=== PATIENT | male | born 1985 | race American Indian/Alaskan Native ===

== ENCOUNTER 2016-08-17 13:14 | Emergency (ER) | payer OTHER ==
[2016-08-17 13:14] VITALS: BMI 45.7
[2016-08-17 13:21] VITALS: RESP 18; TEMP 97.9
[2016-08-17] MEDS ORDERED: Dexamethasone 4 mg/1 ml ONE (13:55)
[2016-08-17] MEDS ORDERED: Lidocaine 5% Patch TD ONE (13:55)
[2016-08-17] MEDS: Dexamethasone 4 mg/1 ml IM STA (14:00)
[2016-08-17] MEDS: Lidocaine 5% Patch TD STA (14:00)
--- NOTE | 2016-08-17 14:20 | C.PDOC ---
History Of Present Illness 30 y/o male presents to the ED with complains of chronic back pain. Pt has been taking muscle relaxants without relief. Pt states pain is right sided and nonradiating the past 2 months. Denies weakness, numbness, urinary or bowel incontinence or any other complaints. Denies trauma. Time Seen by Provider: 08/17/16 13:33 Chief Complaint (Nursing): Back Pain History Per: Patient History/Exam Limitations: no limitations Onset/Duration Of Symptoms: Days, Persistent Current Symptoms Are (Timing): Worse Quality Of Discomfort: "Pain" Severity: Moderate Previous Symptoms: Back Pain, Chronic Pain Associated Symptoms: None Exacerbating Factor(s): Movement Recent travel outside of the [place]: No Past Medical History Reviewed: Historical Data, Nursing Documentation, Vital Signs Vital Signs: Last Vital Signs Temp 97.9 F 08/17/16 13:19 Pulse 72 08/17/16 15:07 Resp 18 08/17/16 15:07 BP 124/71 08/17/16 15:07 Pulse Ox 98 08/17/16 15:07 - Medical History PMH: Arthritis, Back Problems (bulging disc l4,l5), HTN Family History: States: Unknown Family Hx - Social History Hx Tobacco Use: Yes Hx Alcohol Use: No Hx Substance Use: No - Immunization History Hx Tetanus Toxoid Vaccination: Yes Hx Influenza Vaccination: No Hx Pneumococcal Vaccination: No Review Of Systems Except As Marked, All Systems Reviewed And Found Negative. Constitutional: Negative for: Fever Genitourinary: Negative for: Incontinence Musculoskeletal: Positive for: Back Pain Neurological: Negative for: Weakness, Numbness Physical Exam - Physical Exam Appears: Non-toxic, No Acute Distress Skin: Warm, Dry, No Rash Head: Atraumatic, Normacephalic Oral Mucosa: Moist Neck: Normal, Normal ROM, No Midline Cervical Tenderness, Supple Chest: Symmetrical Cardiovascular: Rhythm Regular, No Friction Rub, No Murmur Respiratory: Normal Breath Sounds, No Rales, No Rhonchi, No Wheezing Back: No Vertebral Tenderness, Paraspinal Tenderness (right lumbar) Extremity: Normal ROM Extremity: Bilateral: Atraumatic Neurological/Psych: Oriented x3, Normal Speech, Normal Motor, Normal Sensation Gait: Steady ED Course And Treatment O2 Sat by Pulse Oximetry: 99 (room air) Pulse Ox Interpretation: Normal Progress Note: Plan: tylenol, decadron, lidoderm patch Medical Decision Making Medical Decision Making: On re-exam, the patient reports improvement of symptoms. Lungs are CTA, heart is RRR, abdomen is soft, non-tender and patient is tolerating PO well. Ambulatory in the ED with steady. Follow up with the medical doctor within 1-2 days. Return if worsened. Disposition - Disposition Referrals: [facility] at [facility] [Outside] Baljeet Burger MD [Non-Staff] - Henry Ca MD [Medical Doctor] - Disposition: HOME/ ROUTINE Disposition Time: 14:55 Condition: GOOD Additional Instructions: Follow up with the medical doctor within 1-2 days. Return if worsened. Prescriptions: Acetaminophen [Tylenol] 325 mg PO Q6 PRN #30 tab PRN Reason: Pain, Mild (1-3) Lidocaine 5% [Lidoderm] 1 each TP DAILY #7 patch traMADol [Ultram] 50 mg PO Q6 PRN #15 tab PRN Reason: Pain Instructions: Acute Low Back Pain (DC) Forms: Work Excuse - Clinical Impression Clinical Impression: Lumbar sprain, Lower back pain, Bulging of intervertebral disc between L4 and L5 - PA / HARDWARE TEST ENGINEER / Resident Statement MD/DO has reviewed & agrees with the documentation as recorded. - Scribe Statement The provider has reviewed the documentation as recorded by the Marcos Ingram All medical record entries made by the Marcos were at my direction and personally dictated by me. I have reviewed the chart and agree that the record accurately reflects my personal performance of the history, physical exam, medical decision making, and the department course for this patient. I have also personally directed, reviewed, and agree with the discharge instructions and disposition.
[2016-08-17 15:08] VITALS: BP 124/71; PULSE 72
[2016-08-17 23:49] VITALS: O2SAT 99
== END 2016-08-17 15:09 | disposition home or self-care (01) ==
LOC: C.ER 13:14
DX: M51.26 Other intervertebral disc displacement, lumbar region (principal)
CPT/HCPCS: 96372; 99283; J1100

== ENCOUNTER 2016-09-20 15:21 | Emergency (ER) | payer OTHER ==
[2016-09-20 15:22] VITALS: BMI 45.7
[2016-09-20 15:30] VITALS: BP 128/85; PULSE 72; RESP 18; TEMP 98.3; O2SAT 100
[2016-09-20] MEDS ORDERED: Tmp-Smz 800 mg-160 mg DS Tab PO STA (15:44)
[2016-09-20] MEDS ORDERED: Tmp-Smz 800 mg-160 mg DS Tab ONE (16:00)
--- NOTE | 2016-09-20 16:10 | C.PDOC ---
History Of Present Illness 31 yr old male presents to the ER with complaints of painful lump to the left axilla for the past 3 days. Patient reports of similar symptoms several years ago where he had an abscess which was drained on its own. Patient denies fever, chest pain, SOB, nausea, vomiting, back pain, arm pain, weakness or numbness. Time Seen by Provider: 09/20/16 15:37 Chief Complaint (Nursing): Abnormal Skin Integrity History Per: Patient History/Exam Limitations: no limitations Onset/Duration Of Symptoms: Days (3-4) Current Symptoms Are (Timing): Still Present Quality Of Symptoms: Painful Pain Scale Rating Of: 4 Past Medical History Reviewed: Historical Data, Nursing Documentation, Vital Signs Vital Signs: Last Vital Signs Temp 98.3 F 09/20/16 15:28 Pulse 72 09/20/16 15:28 Resp 18 09/20/16 15:28 BP 128/85 09/20/16 15:28 Pulse Ox 100 09/20/16 16:59 - Medical History PMH: Arthritis, Back Problems (bulging disc l4,l5), HTN Family History: States: No Known Family Hx - Social History Hx Tobacco Use: Yes Hx Alcohol Use: No Hx Substance Use: No - Immunization History Hx Tetanus Toxoid Vaccination: Yes Hx Influenza Vaccination: No Hx Pneumococcal Vaccination: No Review Of Systems Except As Marked, All Systems Reviewed And Found Negative. Constitutional: Negative for: Fever Cardiovascular: Negative for: Chest Pain Respiratory: Negative for: Shortness of Breath Gastrointestinal: Negative for: Nausea, Vomiting Musculoskeletal: Negative for: Arm Pain, Back Pain Skin: Positive for: Other ((+) Painful lump to the left axilla ) Neurological: Negative for: Weakness, Numbness Physical Exam - Physical Exam Appears: Non-toxic, No Acute Distress Skin: Warm, Dry, Other ((+) 1.5cm tender, swollen, and indurated mass to the left axilla ) Head: Atraumatic, Normacephalic Eye(s): bilateral: Normal Inspection Oral Mucosa: Moist Chest: Symmetrical, No Tenderness Cardiovascular: Rhythm Regular, No Friction Rub, No Murmur Respiratory: Normal Breath Sounds, No Rales, No Rhonchi, No Stridor, No Wheezing Extremity: Normal ROM, No Swelling Neurological/Psych: Oriented x3, Normal Speech, Normal Motor Gait: Steady ED Course And Treatment O2 Sat by Pulse Oximetry: 100 (on RA) Pulse Ox Interpretation: Normal Medical Decision Making Medical Decision Making: PLAN: * Bactrim PO * Keflex PO * Tylenol PO The abscess is indurated and not ready for incision and drainage. PAtient was instructed to perform warm compresses and return to the ED for wound check and possible I&D in 2 days. Disposition - Disposition Referrals: Pa Persaud MD [Medical Doctor] - Disposition: HOME/ ROUTINE Disposition Time: 16:07 Condition: GOOD Additional Instructions: Apply warm compresses to the region 4-5 times per day. Return to the ED in 2 days for possible I&D. Prescriptions: Cephalexin [cephalexin] 500 mg PO BID #19 cap Sulfamethoxazole/Trimethoprim [Bactrim DS 800 mg-160 mg] 1 tab PO BID #19 tab traMADol [Ultram] 50 mg PO Q6 PRN #20 tab PRN Reason: Pain Instructions: Abscess (ED) - Clinical Impression Clinical Impression: Abscess - PA / CATH LAB / Resident Statement MD/DO has reviewed & agrees with the documentation as recorded. - Scribe Statement The provider has reviewed the documentation as recorded by the Scribe Rita Fung All medical record entries made by the Mehuliblatoya were at my direction and personally dictated by me. I have reviewed the chart and agree that the record accurately reflects my personal performance of the history, physical exam, medical decision making, and the department course for this patient. I have also personally directed, reviewed, and agree with the discharge instructions and disposition.
== END 2016-09-20 16:20 | disposition home or self-care (01) ==
LOC: C.ER 15:21
DX: L02.412 Cutaneous abscess of left axilla (principal)

== ENCOUNTER 2016-11-07 14:48 | Emergency (ER) | payer OTHER ==
[2016-11-07 14:48] VITALS: BMI 45.7
[2016-11-07 15:03] VITALS: BP 122/69; PULSE 68; RESP 18; TEMP 97.8; O2SAT 98
--- NOTE | 2016-11-07 15:28 | C.PDOC ---
History Of Present Illness 31 y/o male presents to ED with complaints of acute exacerbating back pain for 1 week. Patient reports pain on b/l lower back occasionally radiating to posterior right leg. Patient states he ran out of Tylenol #4 1 week ago and current pain is similar to prior, "I've had for many years. Patient had pain management appointment today but office called and had to reschedule and was directed to ED as per pain management office. Patient denies trauma, nausea, vomiting, diarrhea, urinary symptoms or any other complaints at this time. CO ACUTE BACK PAIN EXAC X 1 WEEK. PS RAN OUT OF TYL #4 1 WEEK AGO. CURRENT PAIN SIM TO PRIOR "KEITH HAD FOR MANY YEARS". B/L LOWER BACK OCC RADIATION POST R LEG. NO WEAK NUMB. PS HAD PAIN MGMT APPOINTMENT TODAY BUT OFFICE CALLED HIM AND HAD TO RESCHEDULE. WAS DIRECTED TO ER PER PAIN MGMT OFFICE. EXAM MILD DIST NONTOXIC BACK LIMITED ROM DUE TO PAIN; NO FOCAL TEND NEURO INTACT MDM [place] RX REVIEW: LAST [facility] RX TYL #4 #28 ON 10/25. ALSO ON 10/17. LAST RX FROM DR BANKS Time Seen by Provider: 11/07/16 15:08 Chief Complaint (Nursing): Back Pain History Per: Patient History/Exam Limitations: no limitations Onset/Duration Of Symptoms: Days Current Symptoms Are (Timing): Still Present Quality Of Discomfort: "Pain" Past Medical History Reviewed: Historical Data, Nursing Documentation, Vital Signs Vital Signs: Last Vital Signs Temp 97.8 F 11/07/16 15:01 Pulse 68 11/07/16 15:01 Resp 18 11/07/16 15:01 BP 122/69 11/07/16 15:01 Pulse Ox 98 11/07/16 15:39 - Medical History PMH: Arthritis, Back Problems (bulging disc l4,l5), HTN Family History: States: No Known Family Hx - Social History Hx Tobacco Use: Yes Hx Alcohol Use: No Hx Substance Use: No - Immunization History Hx Tetanus Toxoid Vaccination: Yes Hx Influenza Vaccination: No Hx Pneumococcal Vaccination: No Review Of Systems Except As Marked, All Systems Reviewed And Found Negative. Constitutional: Negative for: Fever, Chills Gastrointestinal: Negative for: Nausea, Vomiting, Abdominal Pain, Diarrhea Genitourinary: Negative for: Dysuria, Frequency Musculoskeletal: Positive for: Back Pain Skin: Negative for: Rash Neurological: Negative for: Weakness, Numbness Physical Exam - Physical Exam Appears: Non-toxic, Other (Mild distress) Skin: Normal Color, Warm, No Rash Head: Atraumatic, Normacephalic Eye(s): bilateral: Normal Inspection Oral Mucosa: Moist Neck: Normal ROM, Supple Chest: Symmetrical Back: No Paraspinal Tenderness, Other (Limited ROM secondary to pain, No focal tenderness) Extremity: Normal ROM, Capillary Refill (<2 seconds) Neurological/Psych: Oriented x3, Normal Speech, Normal Motor, Normal Sensation ED Course And Treatment O2 Sat by Pulse Oximetry: 98 (RA) Pulse Ox Interpretation: Normal Progress - Re-Evaluation Re-evaluation Note: 11/07/16 15:29 D/W OFFICE DR BANKS (PAIN MGMT). LAST SEEN 10/06 AND IS SEEN EVERY 2 WEEKS. PRESCRIBED TYLE #4. DR BANKS CURRENTLY ON VACATION. - Data Reviewed Data Reviewed: Old records, Other ([facility]) - Continuity of Care Discussed pt. case with program evaluation consultant/specialty: Other (PAIN MANAGEMENT) Medical Decision Making Medical Decision Making: [place] RX REVIEW: LAST [facility] RX TYL #4 #28 ON 10/25. ALSO ON 10/17. LAST RX FROM DR BANKS Disposition Counseled Patient/Family Regarding: Diagnosis, Need For Followup, Rx Given - Disposition Referrals: JOCELYN CHRISTIANSON [Other] Disposition: HOME/ ROUTINE Disposition Time: 15:34 Condition: IMPROVED Prescriptions: Acetaminophen/Cod NO 4 [Tylenol/Cod 300 mg-60 mg] 1 tab PO Q6 #16 tab Instructions: Chronic Back Pain (ED) Forms: [employer] (Kinyarwanda) - Clinical Impression Clinical Impression: Acute exacerbation of chronic low back pain - PA / FOREIGN LANGUAGE STENOGRAPHER / Resident Statement MD/DO has examined the patient and agrees with the treatment plan. - Scribe Statement The provider has reviewed the documentation as recorded by the Marcos Carney All medical record entries made by the Marcos were at my direction and personally dictated by me. I have reviewed the chart and agree that the record accurately reflects my personal performance of the history, physical exam, medical decision making, and the department course for this patient. I have also personally directed, reviewed, and agree with the discharge instructions and disposition.
[2016-11-07] MEDS ORDERED: Oxycodone/Acetaminophen 5/325 mg Tab PO STA (15:34)
[2016-11-07] MEDS ORDERED: Oxycodone/Acetaminophen 5/325 mg Tab ONE (15:40)
== END 2016-11-07 15:55 | disposition home or self-care (01) ==
LOC: C.ER 14:48
DX: M54.5 Low back pain (principal); G89.29 Other chronic pain

== ENCOUNTER 2017-05-30 12:32 | Emergency (ER) | payer MEDICAID, OTHER ==
[2017-05-30 13:00] VITALS: BMI 35.3
--- NOTE | 2017-05-30 15:06 | C.PDOC ---
History Of Present Illness 31yo male with chronic back pain, presents to ED for evaluation of back pain. Patient has had multiple visits to this ER for similar complaints. He denies any new trauma or injury, also denies any weakness, numbness, bowel or bladder dysfunction. Time Seen by Provider: 05/30/17 13:44 Chief Complaint (Nursing): Back Pain History Per: Patient History/Exam Limitations: no limitations Onset/Duration Of Symptoms: Persistent Current Symptoms Are (Timing): Still Present Quality Of Discomfort: "Pain" Previous Symptoms: Chronic Pain Past Medical History Vital Signs: Last Vital Signs Temp 97.8 F 05/30/17 15:14 Pulse 57 L 05/30/17 15:14 Resp 20 05/30/17 15:14 BP 121/82 05/30/17 15:14 Pulse Ox 99 05/30/17 15:14 - Medical History PMH: Arthritis, Back Problems (bulging disc l4,l5) Denies: HTN (PT DENIES) Surgical History: No Surg Hx Family History: States: Unknown Family Hx - Social History Hx Tobacco Use: Yes Hx Alcohol Use: No Hx Substance Use: No - Immunization History Hx Tetanus Toxoid Vaccination: Yes Hx Influenza Vaccination: No Hx Pneumococcal Vaccination: No Review Of Systems Except As Marked, All Systems Reviewed And Found Negative. Genitourinary: Negative for: Incontinence Musculoskeletal: Positive for: Back Pain Neurological: Negative for: Weakness, Numbness Physical Exam - Physical Exam Appears: Non-toxic, No Acute Distress Skin: Normal Color Head: Normacephalic Eye(s): bilateral: Normal Inspection Neck: Normal ROM, Supple Chest: Symmetrical Cardiovascular: Rhythm Regular Respiratory: Normal Breath Sounds Back: Paraspinal Tenderness Extremity: Normal ROM Neurological/Psych: Oriented x3 ED Course And Treatment O2 Sat by Pulse Oximetry: 100 (RA) Pulse Ox Interpretation: Normal Medical Decision Making Medical Decision Making: Impression: Chronic back pain Plan: -- Tramadol 50 mg PO Patient given prescription of flexeril and is stable for discharge home. Disposition Counseled Patient/Family Regarding: Diagnosis, Need For Followup, Rx Given - Disposition Referrals: [facility] [Outside] Disposition: HOME/ ROUTINE Disposition Time: 15:04 Condition: STABLE Prescriptions: Cyclobenzaprine [Cyclobenzaprine HCl] 10 mg PO TID #12 tab traMADol/Acetaminophen [Ultracet 37.5/325 mg] 1 tab PO TID PRN #12 tab PRN Reason: pain Instructions: Low Back Pain in Adults Forms: General Discharge Instructions, [facility] (Salvadorean), Work Excuse - POA Present On Arrival: None - Clinical Impression Clinical Impression: Low back pain - Scribe Statement The provider has reviewed the documentation as recorded by the Scribe (Lay Chino) Provider Attestation: All medical record entries made by the Scribe were at my direction and personally dictated by me. I have reviewed the chart and agree that the record accurately reflects my personal performance of the history, physical exam, medical decision making, and the department course for this patient. I have also personally directed, reviewed, and agree with the discharge instructions and disposition.
[2017-05-30 15:15] VITALS: BP 121/82; PULSE 57; RESP 20; TEMP 97.8
[2017-05-30 16:36] VITALS: O2SAT 100
== END 2017-05-30 15:16 | disposition home or self-care (01) ==
LOC: C.ER 12:32
DX: M54.5 Low back pain (principal)

== ENCOUNTER 2018-03-20 23:02 | Emergency (ER) | payer MEDICAID, OTHER ==
[2018-03-20 23:02] VITALS: BMI 45.7
[2018-03-20 23:12] VITALS: BP 119/83; PULSE 69; TEMP 97.9; O2SAT 96
--- NOTE | 2018-03-20 23:48 | C.PDOC ---
History Of Present Illness 32 year old male with PMHx of chronic back pain presents to the ED c/o back pain. Patient thinks he pulled a muscle in his back which is causing him pain. Patient is requesting refill for his pain medications because he ran out. Patient denies fever, chills, nausea, vomit, diarrhea, bowel incontinence, saddle anesthesia, weakness, numbness,injury, fall, trauma. Time Seen by Provider: 03/20/18 23:19 Chief Complaint (Nursing): Back Pain History Per: Patient History/Exam Limitations: no limitations Onset/Duration Of Symptoms: Days Current Symptoms Are (Timing): Still Present Quality Of Discomfort: "Pain" Previous Symptoms: Back Pain Recent travel outside of the [place]: No Additional History Per: Patient Past Medical History Reviewed: Historical Data, Nursing Documentation, Vital Signs Vital Signs: Last Vital Signs Temp 97.9 F 03/20/18 23:06 Pulse 69 03/20/18 23:06 Resp 17 03/20/18 23:06 BP 119/83 03/20/18 23:06 Pulse Ox 96 03/20/18 23:06 - Medical History PMH: Arthritis, Back Problems (bulging disc l4,l5) Denies: HTN (PT DENIES) Surgical History: No Surg Hx Family History: States: Unknown Family Hx - Social History Hx Tobacco Use: Yes Hx Alcohol Use: No Hx Substance Use: No - Immunization History Hx Tetanus Toxoid Vaccination: Yes Hx Influenza Vaccination: No Hx Pneumococcal Vaccination: No Review Of Systems Constitutional: Negative for: Fever, Chills Cardiovascular: Negative for: Chest Pain Respiratory: Negative for: Shortness of Breath Gastrointestinal: Negative for: Nausea, Vomiting, Abdominal Pain Genitourinary: Negative for: Incontinence Musculoskeletal: Positive for: Back Pain Skin: Negative for: Rash Neurological: Negative for: Weakness, Numbness, Headache, Dizziness Physical Exam - Physical Exam Appears: Non-toxic, No Acute Distress Skin: Normal Color, Warm, Dry Head: Atraumatic, Normacephalic Eye(s): bilateral: Normal Inspection Neck: Normal ROM, Supple Chest: Symmetrical Cardiovascular: Rhythm Regular Respiratory: Normal Breath Sounds, No Rales, No Rhonchi, No Wheezing Gastrointestinal/Abdominal: Soft, No Tenderness, No Guarding, No Rebound Back: Paraspinal Tenderness (paralumbar) Extremity: Normal ROM, No Tenderness, No Swelling Neurological/Psych: Oriented x3, Normal Speech, Normal Cognition, Normal Motor, Normal Sensation Gait: Steady ED Course And Treatment O2 Sat by Pulse Oximetry: 96 (ON RA) Pulse Ox Interpretation: Normal Progress Note: Plan: - Tylenol 975 mg PO. - Flexeril 10 mg PO. On reassessment, patient is resting comfortably, with improvement of back pain. Patient remains afebrile, with no bony tenderness, extremity numbness or weakness, or abdominal pain. Patient is ambulatory in the emergency department with no signs of discomfort. Patient was advised to follow up with physician/clinic in 1-2 days. Disposition Counseled Patient/Family Regarding: Diagnosis, Need For Followup, Rx Given - Disposition Referrals: [facility] [Outside] Disposition: HOME/ ROUTINE Disposition Time: 23:45 Condition: STABLE Additional Instructions: Please follow up with your PMD Return to ER if worse Prescriptions: Methocarbamol [Robaxin-750] 750 mg PO BID #7 tablet Instructions: Lumbar Muscle Strain (DC) Forms: [facility] (Lithuanian), Work Excuse - Clinical Impression Clinical Impression: Lumbar sprain - PA / VENEER SAWYER / Resident Statement MD/DO has reviewed & agrees with the documentation as recorded. - Scribe Statement The provider has reviewed the documentation as recorded by the Scribe Andrew Vickers All medical record entries made by the Mehuliblatoya were at my direction and personally dictated by me. I have reviewed the chart and agree that the record accurately reflects my personal performance of the history, physical exam, medical decision making, and the department course for this patient. I have also personally directed, reviewed, and agree with the discharge instructions and disposition.
[2018-03-21] VITALS: RESP 20
== END 2018-03-21 | disposition home or self-care (01) ==
LOC: C.ER 23:02
DX: S33.5XXA Sprain of ligaments of lumbar spine, initial encounter (principal); X50.9XXA Other and unspecified overexertion or strenuous movements or postures, initial encounter; Z72.0 Tobacco use